=== PATIENT | female | born 1950 | race Caucasian/White ===

== ENCOUNTER 2024-04-05 06:14 | Outpatient (RCR) | payer MEDICARE, OTHER, SELFPAY | END 2024-04-05 23:59 | disposition home or self-care (01) | LOC: RST 06:14 | PROVIDERS: ATTENDING PHYSICIAN Otolaryngology; FAMILY PHYSICIAN Internal Medicine | DX: J38.01 Paralysis of vocal cords and larynx, unilateral (principal); J38.3 Other diseases of vocal cords | CPT/HCPCS: 92524 ==

== ENCOUNTER 2024-05-05 13:09 | Outpatient (RCR) | payer MEDICARE, OTHER, SELFPAY | END 2024-05-05 23:59 | disposition home or self-care (01) | LOC: RST 13:09 | PROVIDERS: ATTENDING PHYSICIAN Otolaryngology; FAMILY PHYSICIAN Internal Medicine | DX: J38.01 Paralysis of vocal cords and larynx, unilateral (principal); J38.3 Other diseases of vocal cords; R49.0 Dysphonia | CPT/HCPCS: 92507 ==

== ENCOUNTER 2024-05-27 13:42 | Outpatient (RCR) | payer MEDICARE, OTHER, SELFPAY | END 2024-05-27 23:59 | disposition home or self-care (01) | LOC: RPT 13:42 | PROVIDERS: ATTENDING PHYSICIAN Otolaryngology; FAMILY PHYSICIAN Internal Medicine; REFERRING PHYSICIAN Specialist | DX: J38.01 Paralysis of vocal cords and larynx, unilateral (principal); J38.3 Other diseases of vocal cords; R49.0 Dysphonia; M54.50 Low back pain, unspecified; Z73.6 Limitation of activities due to disability; M62.81 Muscle weakness (generalized) | CPT/HCPCS: 92507; 97010; 97110; 97112; 97162; 97530 ==

== ENCOUNTER 2024-06-15 10:55 | Outpatient (RCR) | payer MEDICARE, OTHER, SELFPAY | END 2024-06-15 23:59 | disposition home or self-care (01) | LOC: RPT 10:55 | PROVIDERS: ATTENDING PHYSICIAN Otolaryngology; FAMILY PHYSICIAN Internal Medicine; REFERRING PHYSICIAN Specialist | DX: M54.50 Low back pain, unspecified (principal); Z73.6 Limitation of activities due to disability | CPT/HCPCS: 92507; 97010; 97110; 97112 ==